=== PATIENT | female | born 1970 | race American Indian/Alaskan Native ===

== ENCOUNTER 2021-01-01 18:56 | Emergency (ER) | payer BC, OTHER ==
[2021-01-01 20:11] VITALS: BP 181/99
--- NOTE | 2021-01-01 20:27 | Emergency Department Report ---
ED Back Pain/Injury HPI - General Chief Complaint: Back Pain/Injury Stated Complaint: RT SIDE BACK PAIN Time Seen by Provider: 01/01/21 20:20 Source: patient Limitations: No Limitations - History of Present Illness MD Complaint: back pain -: days(s) (4) Place: home Severity: mild, moderate Quality: dull, aching Consistency: constant Improves With: none Worsens With: movement Context: unknown (spontaneous onset. ) Associated Symptoms: other (increase urinary urgency). denies: numbness, difficulty walking, difficulty urinating, diaphoresis, incontinence, fever/chills, constipation, loss of appetite, rash, seizure - Related Data Previous Rx's Medication Instructions Recorded Last Taken Type Nitrofurantoin Hawkins/M-Cryst 100 mg PO Q12HR #20 capsule 01/01/21 Unknown Rx [Macrobid CAP] Phenazopyridine [Pyridium] 200 mg PO TID #10 tab 01/01/21 Unknown Rx Allergies Allergy/AdvReac Type Severity Reaction Status Date / Time amoxicillin Allergy Nausea Verified 01/01/21 20:08 procaine [From Novocain] AdvReac Unknown Verified 01/01/21 20:08 ED Review of Systems ROS: Stated complaint: RT SIDE BACK PAIN Other details as noted in HPI Comment: All other systems reviewed and negative ED Past Medical Hx - Past Medical History Previous Medical History?: Yes Hx Hypertension: Yes - Medications Home Medications: Home Medications Medication Instructions Recorded Confirmed Last Taken Type Nitrofurantoin Hawkins/M-Cryst 100 mg PO Q12HR #20 capsule 01/01/21 Unknown Rx [Macrobid CAP] Phenazopyridine [Pyridium] 200 mg PO TID #10 tab 01/01/21 Unknown Rx ED Physical Exam - General Limitations: No Limitations - Back Exam Back exam: Present: CVA tenderness (R) ED Course Vital Signs 01/01/21 20:09 Temperature 98.2 F Pulse Rate 75 Respiratory 18 Rate Blood Pressure 181/99 O2 Sat by Pulse 99 Oximetry Critical care attestation.: If time is entered above; I have spent that time in minutes in the direct care of this critically ill patient, excluding procedure time. ED Disposition Clinical Impression: UTI (urinary tract infection) Disposition: HOME / SELF CARE / HOMELESS Condition: Stable Instructions: Urinalysis Test, Ureteroscopy, Urinary Tract Infection, Adult Additional Instructions: 50-year-old female with urinary symptoms. Evaluation included urinalysis suggest that your symptoms are due to urinary tract infection. Please take prescribed antibiotics for the for the course of the medications as directed. Follow-up with your doctor within 2 days. X1 department you experience fevers greater than 100.4, worsening uncontrolled pain, vomiting, flank pain or any other symptoms suggesting that your condition is worsening Prescriptions: Nitrofurantoin Hawkins/M-Cryst [Macrobid CAP] 100 mg PO Q12HR #20 capsule Phenazopyridine [Pyridium] 200 mg PO TID #10 tab Referrals: [facility] [Provider Group] - 3-5 Days
[2021-01-01 20:56] LABS: Bilirubin,Urine NEG (Negative); Blood,Urine MOD (Negative); Color,Urine Yellow (Yellow); Mucus,Urine 3+ /HPF; Protein,Urine <15 mg/dL mg/dL (Negative); Urobilinogen,Urine < 2.0 mg/dL (<2.0)
== END 2021-01-01 23:50 | disposition home or self-care (01) ==
LOC: ED 18:56
DX: N39.0 Urinary tract infection, site not specified (principal); I10 Essential (primary) hypertension; Z88.0 Allergy status to penicillin; Z88.4 Allergy status to anesthetic agent
CPT/HCPCS: 81001; 87076; 87086; 87186; 99283